=== PATIENT | female | born 1985 | race African-American/Black ===

== ENCOUNTER 2021-02-10 16:12 | Emergency (ER) | payer SELFPAY ==
[~2021-02-10] VITALS: Ht 165.1 cm; Wt 89.5 kg
[2021-02-10 17:15] VITALS: BP 149/93
[2021-02-10] MEDS ORDERED: DIPH,PERTUSS(ACELL),TET VAC/PF 0.5 ML SYRINGE. VAX IM ONE (18:00)
--- NOTE | 2021-02-10 18:03 | PHYS DOC ---
Past Medical History Past Surgical History: Other Additional Past Surgical Histo: Left ACL (MAMTA LUNA Adam CHURCHILL) General Adult EDM: Chief Complaint: ANIMAL BITE HPI: HPI: Patient is a 35 year old female presenting to the ED today complaining of dog bites to the left upper extremity and left lower extremity. 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 The dog is up-to-date with its shots. (MAMTA LUNA KERLINE) Review of Systems: Review of Systems: Constitutional: Denies fever or chills. [] Integument: Reports dog bites to the left upper extremity and left lower extremity Neurologic: Denies headache, focal weakness or sensory changes. [] Psychiatric: Denies depression or anxiety. [] (MAMTA LUNA Adam CHURCHILL) Heart Score: C/O Chest Pain: N/A Risk Factors: Risk Factors: DM, Current or recent (<one month) smoker, HTN, HLP, family history of CAD, obesity. Risk Scores: Score 0 - 3: 2.5% MACE over next 6 weeks - Discharge Home Score 4 - 6: 20.3% MACE over next 6 weeks - Admit for Clinical Observation Score 7 - 10: 72.7% MACE over next 6 weeks - Early Invasive Strategies (MAMTA LUNA Adam CHURCHILL) Current Medications: Current Medications Medications (Trade) Dose Ordered Sig/Yasmeen Start Time Stop Time Status Last Admin Dose Admin Diphtheria/ Tetanus/Acell Pertussis (ADACEL TDap SYRINGE) 0.5 ml ONCE ONCE 02/10/21 18:00 02/10/21 18:01 UNV (MAMTA LUNA Adam CHURCHILL) Allergies: Allergies: Allergies Coded Allergies Type Severity Reaction Last Updated Verified metronidazole Allergy Unknown 02/10/21 Yes (MAMTA LUNA Adam CHURCHILL) Physical Exam: PE: Constitutional: Well developed, well nourished, no acute distress, non-toxic appearance. [] Skin: Left biceps with a tiny puncture wound consistent of a dog bite, left ventral thigh with multiple bruising seven-point tiny puncture wound consistent of dog bite. Left dorsal thigh with a tiny puncture wound consistent of a dog bite. Neurovascular exam is intact to left upper and left lower extremity. Extremities: No tenderness, no cyanosis, no clubbing, ROM intact, no edema. [] Neurologic: Alert and oriented X 3, normal motor function, normal sensory function, no focal deficits noted. [] Psychologic: Affect normal, judgement normal, mood normal. [] (MAMTA LUNA APRN) Current Patient Data: Vital Signs: Vital Signs Date Time Temp Pulse Resp B/P (MAP) Pulse Ox O2 Delivery O2 Flow Rate FiO2 02/10/21 17:15 97.7 78 18 149/93 (111) 99 Room Air 97.7 (MAMTA LUNA APRN) EKG: EKG: [] (MAMTA LUNA APRN) Radiology/Procedures: Radiology/Procedures: [] (MAMTA LUNA APRN) Course & Med Decision Making: Course & Med Decision Making Pertinent Labs and Imaging studies reviewed. (See chart for details) This a 35-year-old female patient presented to the ED today with dog bites to the left upper and lower extremities. None of the dog bites needed stitches. Discharged on antibiotic. Wound care instructions and return precautions provided. (MAMTA LUNA APRN) Dragon Disclaimer: Dragon Disclaimer: This electronic medical record was generated, in whole or in part, using a voice recognition dictation system. (MAMTA LUNA APRN) Departure Departure Impression: Primary Impression: Dog bite of left upper extremity Qualified Codes: S41.152A - Open bite of left upper arm, initial encounter; W54.0XXA - Bitten by dog, initial encounter Additional Impression: Dog bite of left lower leg Qualified Codes: S81.852A - Open bite, left lower leg, initial encounter; W54.0XXA - Bitten by dog, initial encounter Disposition: 01 HOME / SELF CARE / HOMELESS Condition: STABLE Referrals: NO PCP (PCP) follow up with your doctor in one week Patient Instructions: Animal Bite, [id number] Additional Instructions: You were seen for dog bites, clean the areas with soap and water once a day. Apply Neosporin to the areas twice a day. Take the prescribed antibiotics until completed. Follow-up with your doctor in 1 to 2 weeks Scripts Amoxicillin/Potassium Clav (AUGMENTIN 875-125 TABLET) 1 Each Tablet 1 TAB PO BID for 10 Days, #20 TAB 0 Refills Prov: MAMTA LUNA APRN 02/10/21 Attending Signature Attending Signature I have reviewed the PA/QUALIFICATIONS EXAMINER's note and plan of care. I was available for consultation as needed during the patient's visit in the emergency department. I agree with the clinical impression, plan, and disposition. (SULTANA MUELLER DO) MAMTA LUNA APRN Feb 10, 2021 18:03 SULTANA MUELLER DO Feb 10, 2021 18:46
[2021-02-10] MEDS ORDERED: AMOX1TAB61 PO (18:14)
== END 2021-02-10 18:37 | disposition home or self-care (01) ==
LOC: ER 16:12
DX: S41.152A Open bite of left upper arm, initial encounter (principal); S81.852A Open bite, left lower leg, initial encounter; W54.0XXA Bitten by dog, initial encounter; Y93.89 Activity, other specified; Y92.89 Other specified places as the place of occurrence of the external cause; Y99.8 Other external cause status
CPT/HCPCS: 90471; 90715; 99283-25